=== PATIENT | male | born 1980 | race Caucasian/White ===

== ENCOUNTER 2018-05-26 20:46 | Emergency (ER) | payer MEDICAID ==
[~2018-05-26] VITALS: Ht 175.3 cm; Wt 65.8 kg
[2018-05-26] MEDS ORDERED: TETANUS-DIPTH-ACEL PERTUSSIS 0.5ML SYRG IM ONE (23:00)
[2018-05-26] MEDS ORDERED: HYDROcodone-ACET 5/325MG TAB PO ONE (23:00)
[2018-05-26] MEDS ORDERED: cefTRIAXone SOD 1,000 MG VL IM ONE (23:00)
[2018-05-27] MEDS ORDERED: LIDOCAINE 1% HCL (LOCAL ANESTH.) INJ 20ML MDV IJ ONE
[2018-05-27 10:33] VITALS: BP 118/80
== END 2018-05-27 13:01 | disposition home or self-care (01) ==
LOC: EDBD 20:46 → ER 20:49
DX: S01.531A Puncture wound without foreign body of lip, initial encounter (principal); S01.23XA Puncture wound without foreign body of nose, initial encounter; S51.831A Puncture wound without foreign body of right forearm, initial encounter; S61.431A Puncture wound without foreign body of right hand, initial encounter; S61.432A Puncture wound without foreign body of left hand, initial encounter; W54.0XXA Bitten by dog, initial encounter; Y93.89 Activity, other specified; Y99.8 Other external cause status; Y92.89 Other specified places as the place of occurrence of the external cause
CPT/HCPCS: 70486; 73090; 73130; 90471; 90715; 96372; 99284; J0696; J2001